=== PATIENT | male | born 1955 | race Caucasian/White ===

== ENCOUNTER → 2017-07-15 | Outpatient (CLI) | payer BC ==
[~2017-07-15] MED LIST: NS 100 ML IV 100 ML IV ONE
[2017-07-15 09:44] LABS: CREATININE 1.21 mg/dL (0.70-1.30)
--- NOTE | 2017-07-15 15:52 | CT ---
CT ANGIOGRAPHY NECK CLINICAL HISTORY: 61-year-old male with dizziness and coronary arteriosclerosis. COMPARISON: None. TECHNIQUE: Multiple axial CT images were obtained from the skull base to the aortic arch prior to an d following the administration of IV contrast and reformatted in the sagittal and coronal planes. Rot ating 3D and MIP reformats are submitted. FINDINGS: The take-off of the great vessels is conventional. Significant calcified and noncalcified a therosclerotic plaque within the aortic arch producing high-grade stenoses at the origins of the grea t vessels with calcified and noncalcified atherosclerotic plaque producing high-grade stenosis with n ear complete occlusion of the right vertebral artery and less than 50% occlusion of the left vertebra l artery. Near-complete occlusion of the left ICA at its origin with at least 50% occlusion of the ri ght ICA at its origin secondary to calcific and noncalcific atherosclerotic plaque. There is signific ant atherosclerotic calcification of the cavernous segments of the bilateral ICA without flow-limitin g stenosis. Small caliber right vertebral artery is completely occluded at the C5 level and reconstituted at the C2 level secondary to a dominant left vertebral artery. Basilar artery is normal appearance. The soft tissues of the neck are within normal limits. Scattered paraseptal and centrilobular emphyse matous change. Multilevel degenerative disease and spondyloarthropathy. At C2-C3: No central canal or neural foraminal stenosis. At C3-C4: Mild degenerative anterolisthesis with central disc osteophyte narrows canal approximately 9.9 mm. Bilateral uncovertebral and facet joint hypertrophy produce mild bilateral neural foraminal s tenosis. At C4-C5: Central disk osteophyte narrows canal approximately 10.2 mm. Bilateral facet hypertrophy wi thout significant neural foraminal stenosis. At C5-C6: There complete loss of disc space with endplate sclerosis. Central disk osteophyte narrows canal approximately 10.2 mm. Severe bilateral uncovertebral joint hypertrophy with spurring. Produces moderate bilateral neural foraminal stenosis. At C6-C7: No significant central canal or neural foraminal stenosis. At C7-T1: No significant central canal or neural foraminal stenosis. IMPRESSION: 1. Near-complete occlusion of the left ICA at its origin with at least 50% occlusion of the right ICA at its origin secondary to calcific and noncalcific atherosclerotic plaque. 2. 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 3. High-grade stenosis of the great vessels at the origins and at the right vertebral artery at its o rigin. 4. Non flow limiting atherosclerotic calcification at the origin of the left vertebral artery. 5. Scattered regions of calcific atherosclerotic cysts within the bilateral carotid arteries from the ir origins to the terminus. Reported By:
== END | disposition home or self-care (01) | DRG 303 ==
LOC: RAD 09:16
PROVIDERS: ATTEND Nurse Practitioner
DX: I25.10 Atherosclerotic heart disease of native coronary artery without angina pectoris (principal); I65.22 Occlusion and stenosis of left carotid artery; I65.01 Occlusion and stenosis of right vertebral artery
CPT/HCPCS: 36415; 70498; 82565; 84520; A4222